=== PATIENT | male | born 2000 | race Two or more races ===

== ENCOUNTER 2024-11-16 16:55 | Emergency (ER) | payer SELFPAY | END 2024-11-16 18:36 | disposition home or self-care (01) | LOC: CSHERS 16:55 | DX: S62.326A Displaced fracture of shaft of fifth metacarpal bone, right hand, initial encounter for closed fracture (principal); E10.9 Type 1 diabetes mellitus without complications; F17.210 Nicotine dependence, cigarettes, uncomplicated; X58.XXXA Exposure to other specified factors, initial encounter | CPT/HCPCS: 29125; 99283 ==